=== PATIENT | male | born 1995 | race Hispanic/Latino ===

== ENCOUNTER → 2021-07-28 | Outpatient (CLI) | payer OTHER ==
--- NOTE | 2021-07-28 09:57 | REP ---
INDICATION: VENOUS INSUFFICIENCY , VARICOSE VEIN COMPARISON: None. TECHNIQUE: Rivera scale and color Doppler evaluation using linear high frequency transducer including reflux evaluation. FINDINGS: Ultrasound examination of the right lower extremity deep venous structures from the common femoral vein through the calf/ankle to include the peroneal, and tibial veins demonstrates normal compressibility flow and wave patterns in response to respiration and augmentation. There is no evidence for deep venous thrombosis. Contralateral CFV is patent and normal. Reflux evaluation demonstrates varicosities in the lower extremity calf through ankles. There is reflux to the mid greater saphenous vein measuring 4 mm diameter with reflux duration 4.2 seconds, and in the distal greater saphenous vein at the knee measuring 4 mm diameter with reflux duration 5.3 seconds. Reflux is also noted through the common femoral vein and proximal superficial femoral vein. IMPRESSION: 1. No evidence for deep venous thrombosis. 2. Mild reflux disease and few scattered lower extremity varicosities. <Electronically signed by Juanito Morse > 07/28/21 0983
== END ==
LOC: M RAD 08:28
PROVIDERS: ATTEND Surgery Vascular Surgery
DX: I83.893 Varicose veins of bilateral lower extremities with other complications (principal); Q27.32 Arteriovenous malformation of vessel of lower limb

== ENCOUNTER 2022-06-22 14:03 | Emergency (ER) | payer OTHER ==
[~2022-06-22] VITALS: Ht 182.9 cm; Wt 91.2 kg
[2022-06-22 14:07] VITALS: BP 126/63
[2022-06-22] MEDS ORDERED: AMOX875T2 PO (17:30)
[2022-06-22] MEDS ORDERED: AUGMENTIN 875 MG TAB PO ONE (17:30)
== END 2022-06-22 17:58 | disposition home or self-care (01) ==
LOC: M ED 14:03
DX: S41.131A Puncture wound without foreign body of right upper arm, initial encounter (principal); W54.0XXA Bitten by dog, initial encounter; Y92.89 Other specified places as the place of occurrence of the external cause